=== PATIENT | female | born 1960 | race Caucasian/White ===

== ENCOUNTER 2017-07-01 20:32 | Inpatient (IN) | payer OTHER ==
[~2017-07-01] VITALS: Ht 162.6 cm; Wt 75.6 kg
[~2017-07-01 20:32] MED LIST: ADVIL200 MG PO; AMBIEN5 MG PO; ESTRACE0.5 MG PO; ESTRADIOL1 MG; ESTRADIOL1 MG PO; FLEXERIL10 MG PO; FLEXERIL5 MG PO; HYDROCHLOROTH12.5 M3; HYDROCHLOROTH12.5 M3 PO; IRON PO; IRON325 M1 PO; LISINOPRIL; LISINOPRIL20 MG; LISINOPRIL20 MG PO; MOBIC15 MG PO; MOTRIN600 MG PO; MOTRIN800 MG PO; NORCO 5/3251 TABLET PO; PAROXETINE HCL20 MG PO; PAXIL20 MG PO; PERCOCET 7.51 TABLET PO; ROBITUSSIN AC,T10 ML PO; SANCTURA XR60 MG PO; VITAMIN B122500 MCG PO; ZESTORETIC 20-1 EAC2 PO; ZITHROMAX Z-PA250 MG PO; ZOFRAN ODT8 MG PO; ZOLPIDEM TARTRAT5 MG PO; [UNRECOGNIZED DRUG - REMARK]
[2017-07-01 21:35] LABS: HEMATOCRIT 41.6 % (36.0-46.0); HEMOGLOBIN 14.3 G/DL (11.9-15.5); MCH 31.4 PG (29.0-34.0); MCHC 34.4 G/DL (30.0-36.0); MCV 91.2 FL (83-99); PLATELET COUNT 230 K/uL (156-360); RBC DIS.WIDTH-CV 12.4 % (11.8-14.6); RBC DIS.WIDTH-SD 41.2 % (39-53); RED BLOOD COUNT 4.56 M/uL (3.80-5.20); WHITE BLOOD COUNT 4.5 K/uL (4.1-10.2)
[2017-07-01 21:43] LABS: CHLORIDE 110 mEq/L (99-109); POTASSIUM 3.2 mEq/L (3.7-5.4); SODIUM 147 mEq/L (136-147)
[2017-07-01 21:44] LABS: GLUCOSE 97 mg/dL (70-99)
[2017-07-01 21:47] LABS: SERUM ETHYL ALCOHOL 256 mg/dL
[2017-07-01 21:48] LABS: CREATININE 0.8 mg/dL (0.6-1.3); GFR ESTIMATE (CALCULATED) > 59 mL/min/
[2017-07-01 21:50] LABS: UREA NITROGEN (BUN) 8 mg/dL (9-23)
[2017-07-01 21:51] LABS: SALICYLATE < 5.0 MG/DL (15-30)
[2017-07-01 21:52] LABS: ACETAMINOPHEN (TYLENOL) < 10 mcg/mL (10-30)
[2017-07-01 22:28] LABS: AMPHETAMINE NEGATIVE (500 ng/mL); BARBITURATES NEGATIVE (200 ng/mL); BENZODIAZEPINES NEGATIVE (150 ng/mL); BUPRENORPHINE NEGATIVE (10 ng/mL); COCAINE NEGATIVE (150 ng/mL); METHADONE NEGATIVE (200 ng/mL); METHAMPHETAMINE NEGATIVE (500 ng/mL); OPIATES (MORPHINE) NEGATIVE (100 ng/mL); OXYCODONE NEGATIVE (100 ng/mL); PHENCYCLIDINE NEGATIVE (25 ng/mL); PROPOXYPHENE NEGATIVE (300 ng/mL); THC CANNABINOIDS NEGATIVE (50 ng/mL); TRICYCLIC ANTIDEPRESSANTS NEGATIVE (300 ng/mL)
[2017-07-01 22:52] LABS: BASE EXCESS -1.3 mEq/L (-3 to +3); BICARBONATE 24.3 mEq/L (22-26); PCO2 43 mm Hg (35-45); PO2 372 mm Hg (80-100); pH 7.36 (7.35-7.45)
[2017-07-01 22:53] LABS: COMMENTS - BLOOD GASES C+; DEVICE VENT; FI02 100 %; MECHANICAL RATE 12 resp/min; MODE AC; PEEP 5 CM/H20; SITE LR; TIDAL VOLUME 450 ML; TOTAL RESP RATE 12 resp/min
[2017-07-02] VITALS (24 sets, daily range): BP systolic 81–163; BP diastolic 49–109
[2017-07-02 01:26] LABS: MAGNESIUM 1.9 mg/dL (1.3-2.7)
[2017-07-02 04:54] LABS: HEMATOCRIT 36.1 % (36.0-46.0); HEMOGLOBIN 12.3 G/DL (11.9-15.5); MCH 31.2 PG (29.0-34.0); MCHC 34.1 G/DL (30.0-36.0); MCV 91.6 FL (83-99); PLATELET COUNT 202 K/uL (156-360); RBC DIS.WIDTH-CV 12.4 % (11.8-14.6); RBC DIS.WIDTH-SD 41.5 % (39-53); RED BLOOD COUNT 3.94 M/uL (3.80-5.20); WHITE BLOOD COUNT 4.8 K/uL (4.1-10.2)
[2017-07-02 05:05] LABS: CHLORIDE 114 mEq/L (99-109); POTASSIUM 3.4 mEq/L (3.7-5.4); SODIUM 147 mEq/L (136-147)
[2017-07-02 05:07] LABS: GLUCOSE 83 mg/dL (70-99); MAGNESIUM 1.4 mg/dL (1.3-2.7)
[2017-07-02 05:11] LABS: CREATININE 0.7 mg/dL (0.6-1.3); GFR ESTIMATE (CALCULATED) > 59 mL/min/
[2017-07-02 05:12] LABS: UREA NITROGEN (BUN) 8 mg/dL (9-23)
[2017-07-02 05:26] LABS: BASE EXCESS -3.5 mEq/L (-3 to +3); BICARBONATE 23.9 mEq/L (22-26); CARBOXY HGB 1.7 % (0-5); COMMENTS - BLOOD GASES C+A+; DEVICE VENT; FI02 40 %; MECHANICAL RATE 12 resp/min; METHEMOGLOBIN 1.3 % (0-1.5); MODE AC; PCO2 52 mm Hg (35-45); PEEP 5 CM/H20; PO2 99 mm Hg (80-100); SITE RR; TIDAL VOLUME 450 ML; TOTAL RESP RATE 12 resp/min; pH 7.27 (7.35-7.45)
[2017-07-03 04:00] VITALS: BP 102/56
[2017-07-03 07:55] VITALS: BP 141/73
[2017-07-03] MEDS ORDERED: ZOLPIDEM TARTRAT5 MG PO (10:50)
[2017-07-03] MEDS ORDERED: LISINOPRIL40 MG PO (10:51)
[2017-07-03] MEDS ORDERED: PAROXETINE HCL30 MG PO (10:58)
[2017-07-03] MEDS ORDERED: MELOXICAM15 MG PO (10:58)
[2017-07-03] MEDS ORDERED: DAILY VALUE1 EACH PO (11:00)
[2017-07-03 20:21] VITALS: BP 141/73
[2017-07-04] VITALS: BP 122/69
[2017-07-04 04:05] VITALS: BP 143/75
[2017-07-04 07:08] LABS: BASOPHIL (%) 0.4 % (0-1); EOSINOPHIL (%) 5.7 % (0-5); EOSINOPHIL COUNT 0.3 K/uL (0-0.3); HEMOGLOBIN 12.5 G/DL (11.9-15.5); IMMATURE GRANULOCYTE (%) 0.2 % (0.0-0.7); LYMPHOCYTE (%) 21.6 % (15-42); MCH 31.5 PG (29.0-34.0); MCHC 33.8 G/DL (30.0-36.0); MCV 93.2 FL (83-99); MONOCYTE (%) 8.3 % (3-12); MONOCYTE COUNT 0.4 K/uL (0-0.8); NEUTROPHIL (%) 63.8 % (45-76); NEUTROPHIL COUNT 2.9 K/uL (1.8-6.4); PLATELET COUNT 165 K/uL (156-360); RBC DIS.WIDTH-CV 12.1 % (11.8-14.6); RBC DIS.WIDTH-SD 41.7 % (39-53); RED BLOOD COUNT 3.97 M/uL (3.80-5.20); WHITE BLOOD COUNT 4.6 K/uL (4.1-10.2)
[2017-07-04 07:33] VITALS: BP 138/86
[2017-07-04 07:36] LABS: CHLORIDE 108 MEQ/L (99-109); CREATININE 0.7 MG/DL (0.6-1.3); GFR ESTIMATE (CALCULATED) > 59 mL/min/; GLUCOSE 103 mg/dL (70-99); POTASSIUM 3.1 MEQ/L (3.7-5.4); UREA NITROGEN (BUN) 7 mg/dL (9-23)
[2017-07-04 07:39] LABS: SODIUM 138 MEQ/L (136-147)
[2017-07-04 11:32] LABS: APPEARANCE CLEAR ((CLEAR)); BILIRUBIN NEGATIVE; BLOOD NEGATIVE; COLOR YELLOW ((YELLOW)); GLUCOSE (STRIP) NEGATIVE; KETONES NEGATIVE; LEUKOCYTES NEGATIVE; NITRITE NEGATIVE; PROTEIN (STRIP) NEGATIVE; SPECIFIC GRAVITY 1.001 (1.000-1.030); UCUL ADDED? NO; UROBILINOGEN 0.2 MG/DL (0.2-1.0)
[2017-07-04] MEDS ORDERED: EFFEXOR XR37.5 MG PO (14:11)
[2017-07-04] MEDS ORDERED: GUAIFENESI100 MG/5 M PO (14:11)
[2017-07-04] MEDS ORDERED: MOTRIN600 MG PO (14:11)
[2017-07-04] MEDS ORDERED: FOLIC ACID1 MG PO (14:12)
[2017-07-04] MEDS ORDERED: Thiamine,Vitamin B1 PO (14:12)
[2017-07-04] MEDS ORDERED: DOCUSATE SODIU100 MG PO (14:12)
[2017-07-04] MEDS ORDERED: LEVOFLOXACIN500 MG PO (14:14)
[2017-07-04 15:47] VITALS: BP 147/89
[2017-07-04] MEDS ORDERED: MELOXICAM7.5 MG PO (18:12)
== END 2017-07-04 17:10 | DRG 917 ==
LOC: EME → EDBD 20:32 → 4WEST 22:11 → 5SOUTH 22:11 → EDOF 22:11 → ENRESERV 22:18 → 4WEST 23:47 → ENRESERV 07-02 22:09 → 4WEST 07-02 22:46 → 5SOUTH 07-02 23:16
PROVIDERS: Emergency Medicine; Internal Medicine; Surgery
DX: T42.6X2A Poisoning by other antiepileptic and sedative-hypnotic drugs, intentional self-harm, initial encounter (principal); G93.40 Encephalopathy, unspecified; J96.01 Acute respiratory failure with hypoxia; J18.9 Pneumonia, unspecified organism; J98.11 Atelectasis; F10.129 Alcohol abuse with intoxication, unspecified; I10 Essential (primary) hypertension; F41.8 Other specified anxiety disorders; F43.21 Adjustment disorder with depressed mood; Z91.5 Personal history of self-harm; Z90.710 Acquired absence of both cervix and uterus
CPT/HCPCS: 36600; 70450; 71045; 71250; 74176; 80048; 81003; 82330; 82803; 83735; 84100; 85025; 85027; 87040; 87070; 87086; 87205; 87502; 87641; 93005; 94002; 94003; 94640 76; 94799; 99202; 99281; 99285; G0480; J1650; J2704; J3010; J3480; J7030; J7050; S0028

== ENCOUNTER 2017-07-04 16:09 | Inpatient (IN) | payer OTHER ==
[~2017-07-04 16:09] MED LIST changes: +DAILY VALUE1 EACH PO; +DOCUSATE SODIU100 MG PO; +EFFEXOR XR37.5 MG PO; +FOLIC ACID1 MG PO; +GUAIFENESI100 MG/5 M PO; +LEVOFLOXACIN500 MG PO; +LISINOPRIL40 MG PO; +MELOXICAM15 MG PO; +PAROXETINE HCL30 MG PO; +Thiamine,Vitamin B1 PO
[2017-07-04 17:34] VITALS: BP 171/81
[2017-07-04] MEDS ORDERED: MELOXICAM7.5 MG PO (18:12)
[2017-07-05 07:52] VITALS: BP 157/67
[2017-07-05 15:47] VITALS: BP 140/74
[2017-07-06 07:34] VITALS: BP 145/76
[2017-07-06] MEDS ORDERED: EFFEXOR XR37.5 MG PO (09:27)
[2017-07-06] MEDS ORDERED: MIRTAZAPINE15 MG PO (09:27)
[2017-07-06] MEDS ORDERED: VENTOLIN HFA18 GM IH (09:27)
[2017-07-06] MEDS ORDERED: GUAIFENESI100 MG/5 M PO (09:27)
== END 2017-07-06 13:29 | disposition home or self-care (01) | DRG 880 ==
LOC: 1WEST 16:09 → ENRESERV 16:10 → 1WEST 17:16
DX: F41.8 Other specified anxiety disorders (principal); G47.00 Insomnia, unspecified; I10 Essential (primary) hypertension; Z90.710 Acquired absence of both cervix and uterus
CPT/HCPCS: 94640; 97150 GO; 97165 GO; 99202

== ENCOUNTER 2017-07-07 20:51 | Emergency (ER) | payer OTHER ==
[~2017-07-07 20:51] MED LIST changes: +MELOXICAM7.5 MG PO; +MIRTAZAPINE15 MG PO; +VENTOLIN HFA18 GM IH
== END 2017-07-07 20:53 | disposition left against medical advice (07) ==
LOC: EME 20:51
DX: R06.02 Shortness of breath (principal); R05 Cough; Z53.21 Procedure and treatment not carried out due to patient leaving prior to being seen by health care provider